=== PATIENT | female | born 1950 | race Two or more races ===

== ENCOUNTER → 2024-06-22 | Emergency (ER) | payer OTHER ==
[~2024-06-22] VITALS: Ht 149.9 cm; Wt 89.8 kg
[~2024-06-22] MED LIST: 0.9 % SODIUM CHLORIDE 500 ML IV ONE; KETOROLAC TROMETHAMINE 15 MG VIAL IV ONE; LOSARTAN-HCTZ1 EAC2 PO
[2024-06-22 12:26] LABS: HEMATOCRIT 44.6 % (36.0-45.00); HEMOGLOBIN 14.7 g/dL (12.0-15.00); MEAN CELL VOLUME 89.3 fL (80.00-100.00); MEAN CORPUSCULAR HEMOGLOBIN 29.4 pg (27.00-32.0); PLATELET COUNT 334 K/uL (150-450); RED CELL DISTRIBUTION WIDTH 16.4 % (11.5-14.5)
[2024-06-22 13:02] LABS: CALCIUM 9.4 mg/dL (8.5-10.1); CREATININE SERUM 1.32 mg/dL (0.55-1.02); GFR 39.23; POTASSIUM 4.5 mEq/L (3.5-5.1)
== END | disposition left against medical advice (07) ==
LOC: ER 10:27
PROVIDERS: General Practice
DX: S29.8XXA Other specified injuries of thorax, initial encounter (principal); W18.39XA Other fall on same level, initial encounter; Y93.89 Activity, other specified; Y92.89 Other specified places as the place of occurrence of the external cause; Z20.822 Contact with and (suspected) exposure to COVID-19; S22.42XA Multiple fractures of ribs, left side, initial encounter for closed fracture
CPT/HCPCS: 36415; 74176; 96365; 96366; 99284; J1885; J7042